=== PATIENT | male | born 1955 | race Caucasian/White ===

== ENCOUNTER 2025-03-23 20:08 | Emergency (ER) | payer MEDICARE, OTHER, SELFPAY ==
--- OUTSIDE RECORDS SUMMARY | 2025-03-23 20:10 | XMS_ITS | Clinical Summary ---
Author Organization [employer] Address [address] 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
--- OUTSIDE RECORDS SUMMARY | 2025-03-23 20:10 | XMS_ITS | Clinical Summary ---
Author Organization [facility] [employer] Address [address] [place] [address] Care Team Providers Care Blueprint Clerk Name Role Phone Unavailable Primary Care Provider Unavailabl e Source Comments [facility] [employer],non-owned Affiliates and Associated Physician Practices is amultiple site organization consisting of ambulatory clinics and hospital sitesin [place], [place], [place] and [place]. This disclosure is being madepursuant to the Care Everywhere program and may not contain all information available regarding this patient. Last updated 18.[facility] [employer] Allergies Active Allergy Reactions Criticality Noted Date Comments Clobetasol Rash Medium 04/01/2010 Contrast-Iodinated Agents For Ct/Other Urticaria Medium 06/24/2019 sneezing Iohexol Anaphylaxis High 11/26/2009 Latex Rash Medium 02/24/2011 Medications * Be aware that medications may not be up to date on this document. Alwaysverify current medications with the patient. 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 30 day supply. 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 30 day supply. 100 g 5 1 Active mupirocin (BACTROBAN) 2 % ointmentIndicati ons:Contact dermatitis due to oil, unspecified contact dermatitis type Apply topically inside nostrils, behind ears, fingernails, armpits, belly button, groin folds, buttock crack and to any open scabbed areas 2x/day x 5 days. Repeat monthly x 3 months. 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 11/16/2015 Mixed hyperlipidemia 10/01/2015 Tobacco abuse 10/01/2015 Blue nevus of skin 08/23/2012 Family History Medical History Relation Name Comments Asthma Neg Hx CVA Neg Hx Cancer - Breast Neg Hx Cancer - Other Neg Hx Cancer - Skin, Melanoma Neg Hx Cancer - Skin, Non Melanoma Neg Hx Eczema Neg Hx Hemophilia Neg Hx Psoriasis Neg Hx Social History Tobacco Use Types Packs/Day Years Used Date Smoking Tobacco: Every Day Smokeless Tobacco: Never Alcohol Use Standard Drinks/Week Comments Yes 0 (1 standard drink = 0.6 oz pur e alcohol) occasionally Sex and Gender Information Value Date Recorded Sex Assigned at Not on file Legal Sex Male 11:04 AM CDT Gender Identity Not on file Sexual Orientation Not on file Last Filed Vital Signs Vital Sign Reading Time Taken Comments Blood Pressure 100/80 10/01/2015 8:50 AM CDT Pulse 61 10/01/2015 8:50 AM CDT Temperature 36.8 C (98.2 F) 10/01/2015 8:50 AM CDT Respiratory Rate - - Oxygen Saturation 97% 10/01/2015 8:50 AM CDT Inhaled Oxygen Concentration - - Weight 96.8 kg (213 lb 6.4 oz) 10/01/2015 8:50 A M CDT Height 190.5 cm (6' 3) 10/01/2015 8:50 AM CDT Body Mass Index 26.67 10/01/2015 8:50 AM CDT Plan of Treatment Health Maintenance Due Date Last Done Comments COLOGUARD (AGES 45-75) - COL ON CA SCREENING 1957 COLON MONITORING 1957 COLONOSCOPY - COLON CA SCREENING 1957 CT COLONOGRAPHY - COLON CA SCREENING 1957 Colorectal Cancer Screening 1957 FIT - COLON CA SCREENING 1957 FLEX SIG - COLON CA SCREENING 1957 MEDICARE AWV 12 MONTHS 1957 HEPATITIS C SCREENING 10/24/1975 DTAP/TDAP/TD VACCINES (1 - Tdap) 1976 PNEUMOCOCCAL VACCINE 50+ (1 of 2 - PCV) 1976 ZOSTER VACCINE (1 of 2) 10/29/2007 LIPID TESTING 09/30/2020 10/01/2015, 10/01/2015 AAA SCREENING 2022 DEPRESSION SCREENING 07/16/2024 COVID-19 VACCINE (1 - 2023-2 5 season) 2025 INFLUENZA VACCINE (#1) 2025 Respiratory Syncytial Virus (RSV) Vaccine Pt: or over 60 yrs (1 - 1-dose 75+ series) 2032 HEPATITIS B VACCINE Aged Out No longe r eligible based on patient's age to complete this topic HIB VACCINE Aged Out No longer eligi ble based on patient's age to complete this topic HPV VACCINE Aged Out No longer eligi ble based on patient's age to complete this topic MENINGOCOCCAL (Group B) VACCINE SHARED DECISION-MAKING Aged Out No longer eligible based on patient's age to complete this topic MENINGOCOCCAL GROUPS A/C/Y/W VACCINE Aged Out No longer eligible b ased on patient's age to complete this topic Procedures Procedure Name Priority Date/Time Associated Diagnosis Comments LIPID PROFILE - POINT OF CARE (AMB) [facility] Routine 10/01/2015 from Last 3 Months or Most Recently Relevant to Health Maintenance Results * LIPID PROFILE - POINT OF CARE (AMB) [facility] (10/01/2015) Cholesterol Total 248 [facility] HDL 30 mg/dL [facility] Triglycerides 103 mg/dL [facility] LDL Calculated [facility] 10/01/2015 us Pancho Saunders MD LAB - POINT OF CARE ORDERABLE S Final Result [facility] [address] [place] [address], [facility] from Last 3 Months or Most Recently Relevant to Health Maintenance Insurance MEDICARE [facility]
--- OUTSIDE RECORDS SUMMARY | 2025-03-23 20:10 | XMS_ITS | Encounter Summary ---
Author Organization [employer] Address [address] [place] [address] Care Team Providers Care Plumbing Warehouse Helper Name Role Phone Unavailable Primary Care Provider Unavailabl e Encounter Details Date Type Department Care Team (Latest Contact Info) Description 11/19/2003 Outpatient Historical HIS CD PARTIAL Ayden Chandra MD [address] [place] [id number] [facility] NEC/NOS-UNSPEC ([facility] (Primary Dx) Social History Tobacco Use Types Packs/Day Years Used Date Smoking Tobacco: Never Assessed Sex and Gender Information Value Date Recorded Sex Assigned at Not on file 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
[2025-03-23 20:15] VITALS: BP 127/72; PULSE 84; RESP 18; TEMP 36.8; O2SAT 100
--- NOTE | 2025-03-23 22:06 | ED_ITS ---
HPI - General Adult General Chief complaint: Unspecified Stated complaint: constipation, rectal pain Time Seen by Provider: 03/23/25 20:40 Source: patient Mode of arrival: ambulatory Limitations: no limitations History of Present Illness HPI narrative: This is a 69 year old male that presents to the ER for constipation. Reports he has been having trouble with constipation over the last couple of days. Reports he had been straining and then noticed and area of swelling by his rectum. Denies abdominal pain, blood in the stool. Related Data Allergies Allergy/AdvReac Type Severity Reaction Status Date / Time Iodinated Contrast Media Allergy Unknown Verified 06/13/19 08:40 iodine Allergy Unknown IVP DYE Verified 06/13/19 08:40 HIVES ioversol Allergy Unknown Verified 06/13/19 08:40 clobetasol Allergy Verified 06/13/19 08:40 latex Allergy Verified 06/13/19 08:40 IVP DYE Allergy Mild Uncoded 06/13/19 08:40 Review of Systems Review of Systems: All systems reviewed & are unremarkable except as noted in HPI and below PMFSH Family History Family History (System 06/13/19 @ 08:40 by Barbie Valdes) Mother Family history of malignant neoplasm Patient's mother is Other Family history of allergic disorder Social History Social History (System 06/13/19 @ 08:40 by Barbie Valdes) Alcohol intake: current Exam Narrative: GENERAL: Well-appearing, well-nourished, and in no acute distress. HEAD: Normocephalic, atraumatic. EYES: EOMI. CHEST: Clear to auscultation. No respiratory distress. No wheezes rales or rhonchi HEART: Regular rate and rhythm. No murmur heard. Normal peripheral pulses. ABDOMEN: Soft, nontender, nondistended, normal active bowel sounds. EXTREMITIES: Normal range of motion. No edema. SKIN: Warm, dry, no rash. NEURO: No focal deficits. Alert and oriented x3. PSYCH: Normal mood and affect RECTAL: External hemorrhoid present, nonthrombosed, no bleeding Course Vital Signs Vital signs: Vital Signs Temperature 98.2 F 03/23/25 20:15 Pulse Rate 84 03/23/25 20:15 Respiratory Rate 18 03/23/25 20:15 Blood Pressure 127/72 03/23/25 20:15 Pulse Oximetry 100 03/23/25 20:15 Oxygen Delivery Room Air 03/23/25 20:15 Temperature 98.2 F 03/23/25 20:15 Pulse Rate 84 03/23/25 20:15 Respiratory Rate 18 03/23/25 20:15 Blood Pressure 127/72 03/23/25 20:15 Pulse Oximetry 100 03/23/25 20:15 Oxygen Delivery Room Air 03/23/25 20:15 Medical Decision Making MDM Narrative Medical decision making narrative: Patient presents to the ER for an external hemorrhoid. Nonthrombosed, no active bleeding. No abdominal pain. Instructed on further care. Will be given follow up with Gastroenterology. He was given warnings to return to the ER Vital Signs Vital Signs: Vital Signs Temperature 98.2 F 03/23/25 20:15 Pulse Rate 84 03/23/25 20:15 Respiratory Rate 18 03/23/25 20:15 Blood Pressure 127/72 03/23/25 20:15 Pulse Oximetry 100 03/23/25 20:15 Oxygen Delivery Room Air 03/23/25 20:15 Temperature 98.2 F 03/23/25 20:15 Pulse Rate 84 03/23/25 20:15 Respiratory Rate 18 03/23/25 20:15 Blood Pressure 127/72 03/23/25 20:15 Pulse Oximetry 100 03/23/25 20:15 Oxygen Delivery Room Air 03/23/25 20:15 Critical Care Time Critical Care Time Critical Care Time: No Discharge Plan Discharge Clinical Impression: Hemorrhoid Qualifiers: Hemorrhoid type: unspecified Qualified Code(s): K64.9 - Unspecified hemorrhoids Patient Disposition: Home Condition: Stable Instructions: Constipation (ED), Hemorrhoids (ED), Sitz Bath (DC) Additional Instructions: Return to the ER if you experience fever, abdominal pain with nausea and vomiting, you are unable to keep down liquids or solids, blood in the stool or any other symptoms that are concerning to you Remain well hydrated. Take Colace daily. Miralax daily. Apply ointment as needed Follow up with gastroenterology Patient Language: Sammarinese Prescriptions: New Preparation H 0.25-14-74.9 % ointment 1 applic RECTAL TID PRN (Reason: rectal discomfort) Qty: 28 0RF Follow-up/Referrals: Prem Moreno MD [Physician, Family Practice] Jamarcus Pollack MD [Physician, Gastroenterology] UNKNOWN,DOCTOR [Primary Care Provider]
== END 2025-03-23 22:35 | disposition home or self-care (01) ==
PROVIDERS: Emergency Provider Physician Assistant
DX: K64.9 Unspecified hemorrhoids (principal)
CPT/HCPCS: 99283

== ENCOUNTER 2025-03-25 12:18 | Emergency (ER) | payer MEDICARE, OTHER, SELFPAY ==
--- NOTE | ~2025-03-25 | CT_ITS ---
EXAMINATION: CT abdomen pelvis wo con DATE: 03/25/2025 13:23 INDICATION: Rectal pain and bleeding TECHNIQUE: Computed tomography (CT) of the abdomen and pelvis was performed without intravenous contrast. Automated exposure control and iterative reconstruction technique were employed. The dose-length product was 669.40 mGy-cm. COMPARISON: CT dated 04/05/2005 FINDINGS: Lung bases are clear. Heart size is normal. No pericardial or pleural effusion. Cholecystectomy clips at gallbladder fossa. Liver, spleen, pancreas, bilateral adrenal glands and kidneys are normal. Mild sigmoid diverticulosis without adjacent from trace stranding to suggest diverticulitis. Status post appendectomy with suture line at the tip of the cecum. No bowel obstruction. Bladder is normal. Prostatomegaly measuring 6.1 x 4.7 cm. No free intraperitoneal gas or fluid. No pathologically enlarged abdominal or pelvic lymphadenopathy. Small fat-containing left inguinal hernia. Mild thoracic and lumbar spondylosis. IMPRESSION: 1. Mild sigmoid diverticulosis without diverticulitis. No acute intra- abdominal/pelvic process. 2. Prostatomegaly. 3. Small fat-containing left inguinal hernia. Reviewed, dictated and finalized at location A. IMPRESSION: 1. Mild sigmoid diverticulosis without diverticulitis. No acute intra-abdominal /pelvic process. 2. Prostatomegaly. 3. Small fat-containing left inguinal hernia.
[2025-03-25 12:53] VITALS: BP 155/88; PULSE 90; RESP 18; TEMP 36.4; O2SAT 98
--- OUTSIDE RECORDS SUMMARY | 2025-03-25 13:04 | XMS_ITS | Clinical Summary ---
Author Organization [facility] [employer] Address [address] [place] [address] Care Team Providers Care Certified Credit Counselor Name Role Phone Unavailable Primary Care Provider Unavailabl e Source Comments [facility] [employer],non-owned Affiliates and Associated Physician Practices is amultiple site organization consisting of ambulatory clinics and hospital sitesin [place], [place], [place] and [place]. This disclosure is being madepursuant to the Care Everywhere program and may not contain all information available regarding this patient. Last updated 18.[facility] [employer] Allergies Active Allergy Reactions Criticality Noted Date [...] CARE (AMB) [facility] (10/01/2015) Cholesterol Total 248 [facility] HDL 30 mg/dL [facility] Triglycerides 103 mg/dL [facility] LDL Calculated 197 [facility] 10/01/2015 us Pancho Saunders MD LAB - POINT OF CARE ORDERABLE S Final Result [facility] [address] [place] [address], [facility] [place] from Last 3 Months or Most Recently Relevant to Health Maintenance Insurance MEDICARE [facility]
--- OUTSIDE RECORDS SUMMARY | 2025-03-25 13:04 | XMS_ITS | Clinical Summary ---
Author Organization [employer] [facility] Address [address] 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
--- OUTSIDE RECORDS SUMMARY | 2025-03-25 13:04 | XMS_ITS | Encounter Summary ---
Author Organization [employer] Address 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
--- NOTE | 2025-03-25 13:15 | ED.GIBLEED ---
HPI - GI Bleed General Chief complaint: Skin/Abscess/Foreign Body <Juan Luis Lyle APRN - Last Filed: 03/25/25 13:16> Stated complaint: BLEEDING HEMORRHOID <Juan Luis Lyle APRN - Last Filed: 03/25/25 13:16> Time Seen by Provider: 03/25/25 15:44 <Juan Luis Lyle APRN - Last Filed: 03/25/25 13:16> Focused HPI: 69-year-old male presents to the ER complaining of rectal pain and bleeding for last 3 days. Patient was seen here 3 days ago was told he has a hemorrhoid. Patient was prescribed Preparation-H. Patient reports since then the pain, swelling, bleeding is gotten worse. Patient denies any abdominal pain, nausea, vomiting, diarrhea, fevers, chest pain, shortness of breath, or other symptoms. Patient getting lab work imaging done last visit. GENERAL: Well-appearing, well-nourished, and in no acute distress. HEAD: Normocephalic, atraumatic. CHEST: Clear to auscultation. ?No respiratory distress. GI: Round, distended, and soft, nontender. Bowel sounds active. No guarding or rigidity. No rebound tenderness. HEART: Regular rate and rhythm.? NEURO: ?Alert and oriented x3. Patient screened in triage and initial orders placed.? ?Additional care and disposition to be based upon?diagnostic testing and treatment. <Juan Luis Lyle APRN - Last Filed: 03/25/25 13:16> History of Present Illness HPI Narrative: agree with HPI <Ricki Hoyt MD - Last Filed: 03/25/25 21:42> Related Data Allergies/Adverse reactions: Allergies Allergy/AdvReac Type Severity Reaction Status Date / Time Iodinated Contrast Media Allergy Unknown Unknown Verified 03/25/25 12:20 iodine Allergy Unknown IVP DYE Verified 03/25/25 12:20 HIVES ioversol Allergy Unknown Unknown Verified 03/25/25 12:20 clobetasol Allergy Unknown Verified 03/25/25 12:20 latex Allergy Unknown Verified 03/25/25 12:20 IVP DYE Allergy Mild Unknown Uncoded 03/25/25 12:20 <Juan Luis Lyle APRN - Last Filed: 03/25/25 13:16> Review of Systems Review of Systems: Gen.: Denies fevers or chills Eyes: Denies eye pain or visual change ENT: Denies congestion Respiratory: Denies shortness of breath or cough CV: Denies chest pain or palpitations GI: Denies abdominal pain nausea, emesis or diarrhea denies burning, urgency, frequency or hematuria Musculoskeletal: Denies back pain or muscle pain Neuro: Denies numbness, tingling, weakness or focal weakness Skin: Denies rash Except as documented, all other systems reviewed and negative <Ricki Hoyt MD - Last Filed: 03/25/25 21:42> [facility] Family History Family History: Family History Mother Family history of malignant neoplasm Patient's mother is Other Family history of allergic disorder <Juan Luis Lyle APRN - Last Filed: 03/25/25 13:16> Social History Social History: Social History Alcohol intake: current <Juan Luis Lyle APRN - Last Filed: 03/25/25 13:16> Exam Narrative: APPEARANCE: No acute distress, nontoxic, resting in bed EYES: EOMI HEENT: Normocephalic, atraumatic, OMM RESPIRATORY: No respiratory distress Clear to auscultation bilaterally with no rhonchi wheezing or rales. CARDIOVASCULAR: Regular rate and rhythm without murmurs rubs or gallops. ABDOMINAL: Soft, nontender, nondistended, no rebound or guarding GEN: There is an opening hemorrhoid to 4 o clock, no active bleeding. MUSCULOSKELETAl: Moves all extremities. No clubbing, cyanosis or edema. NEURO: Awake and alert. Following commands, speech normal, no focal deficits SKIN:: Warm, dry. No rashes lesions or abrasions PSYCHIATRIC: Normal affect/mood, <Ricki Hoyt MD - Last Filed: 03/25/25 21:42> Course Vital Signs Vital signs: Vital Signs Temperature 97.6 F 03/25/25 12:53 Pulse Rate 90 03/25/25 12:53 Respiratory Rate 18 03/25/25 12:53 Blood Pressure 155/88 H 03/25/25 12:53 Pulse Oximetry 98 03/25/25 12:53 Oxygen Delivery Room Air 03/25/25 12:53 Temperature 97.6 F 03/25/25 12:53 Pulse Rate 90 03/25/25 12:53 Respiratory Rate 18 03/25/25 12:53 Blood Pressure 155/88 H 03/25/25 12:53 Pulse Oximetry 98 03/25/25 12:53 Oxygen Delivery Room Air 03/25/25 12:53 <Juan Luis Lyle APRN - Last Filed: 03/25/25 13:16> Vital Signs Temperature 97.6 F 03/25/25 12:53 Pulse Rate 90 03/25/25 12:53 Respiratory Rate 18 03/25/25 12:53 Blood Pressure 155/88 H 03/25/25 12:53 Pulse Oximetry 98 03/25/25 12:53 Oxygen Delivery Room Air 03/25/25 12:53 Temperature 97.6 F 03/25/25 12:53 Pulse Rate 90 03/25/25 12:53 Respiratory Rate 18 03/25/25 12:53 Blood Pressure 155/88 H 03/25/25 12:53 Pulse Oximetry 98 03/25/25 12:53 Oxygen Delivery Room Air 03/25/25 12:53 <Ricki Hoyt MD - Last Filed: 03/25/25 21:42> MDM - GI Bleed MDM Narrative Medical decision making narrative: A 69-year-old male who presents to the ED for concerns for rectal bleeding due to hemorrhoids. On initial evaluation, patient was in no acute distress, afebrile and hemodynamically stable. He did have a non thrombosed hemorrhoid with a small amount of drainage but no active bleeding at this time it was minimally tender to palpation. CT abdomen/pelvis revealed diverticulosis without diverticulitis. Had a leukocytosis of 15.6 the remaining labs without significant abnormalities. No suspicion for infection at this time. Patient will be given referral to surgery for further evaluation treatment of his hemorrhoids. He ordered has a raised to home. He was advised to continue to monitor the symptoms. Patient was agreeable to this plan. Given strict return precautions. <Ricki Hoyt MD - Last Filed: 03/25/25 21:42> Differential Diagnosis Differential diagnosis: Likely hemorrhoids, infectious diarrhea, Lower gastrointestinal hemorrhage, hematochezia and anal fissure <Ricki Hoyt MD - Last Filed: 03/25/25 21:42> Medical Records Attestation: I reviewed the patient's medical records. <Ricki Hoyt MD - Last Filed: 03/25/25 21:42> Lab Data Attestation: I reviewed the patient's lab results. <Ricki Hoyt MD - Last Filed: 03/25/25 21:42> Result diagrams: 03/25/25 13:31 03/25/25 13:31 <Juan Luis Lyle APRN - Last Filed: 03/25/25 13:16> Labs: Lab Results 03/25/25 Range/Units 13:31 WBC 15.6 H (4.5-10.0) K/mm3 RBC 5.17 (4.6-6.20) M/mm3 Hgb 15.1 (14.0-18.0) g/dL Hct 45.6 (42.0-52.0) % MCV 88.2 (80-100) fl MCH 29.2 (26-34) pg MCHC 33.1 (32-36) g/dl RDW 14.2 (11.5-14.5) % Plt Count 253 (150-375) k/mm3 MPV 9.9 (7.4-10.4) fl Immature Gran % (Auto) 1.0 H (0-0.5) % Neut % (Auto) 77.0 H (45.5-73.1) % Lymph % (Auto) 13.4 L (18.3-44.2) % [place] % (Auto) 7.4 (2.6-8.5) % Eos % (Auto) 0.5 (0-4.4) % Baso % (Auto) 0.7 (0.2-1.2) % Lymph # (Auto) 2.09 (0.9-3.2) K/mm3 [place] # (Auto) 1.2 H (0.1-0.6) K/mm3 Eos # (Auto) 0.1 (0-0.3) K/mm3 Baso # (Auto) 0.1 (0.0-0.1) K/mm3 Abs Immat Gran (auto) 0.15 H (0.00-0.031) K/mm3 Absolute Neuts (auto) 12.0 H (1.3-6.7) K/mm3 Absolute Nucleated RBC 0.000 (0.0-0.012) K/mm3 Nucleated RBC % 0.0 (0.0-0.2) % PT 13.4 (11.1-14.7) Seconds INR 1.0 APTT 34.4 (22.3-36.8) Seconds Sodium 137 (137-145) mmol/L Potassium 3.8 (3.4-5.0) mmol/L Chloride 102 (98-107) mmol/L Carbon Dioxide 27 (22-30) mmol/L Anion Gap 8 (4-12) mmol/L BUN 6 L (9-20) mg/dL Creatinine 0.96 (0.7-1.3) mg/dL Estim Creat Clear Calc 74 ml/min Estimated GFR > 60 (59 - ) Glucose 102 (65-110) mg/dL Calcium 9.0 (8.4-10.2) mg/dL Total Bilirubin 0.8 (0.2-1.3) mg/dL AST 22 (17-59) U/L ALT 16 (6-50) U/L Alkaline Phosphatase 110 (38-126) U/L Total Protein 7.8 (6.3-8.2) g/dL Albumin 4.1 (3.5-5.1) g/dL Lipase 27 (23-300) U/L Blood Type A Positive Antibody Screen Negative <Juan Luis Lyle, HADOOP CONSULTANT - Last Filed: 03/25/25 13:16> Lab Results 03/25/25 Range/Units 13:31 WBC 15.6 H (4.5-10.0) K/mm3 RBC 5.17 (4.6-6.20) M/mm3 Hgb 15.1 (14.0-18.0) g/dL Hct 45.6 (42.0-52.0) % MCV 88.2 (80-100) fl MCH 29.2 (26-34) pg MCHC 33.1 (32-36) g/dl RDW 14.2 (11.5-14.5) % Plt Count 253 (150-375) k/mm3 MPV 9.9 (7.4-10.4) fl Immature Gran % (Auto) 1.0 H (0-0.5) % Neut % (Auto) 77.0 H (45.5-73.1) % Lymph % (Auto) 13.4 L (18.3-44.2) % [place] % (Auto) 7.4 (2.6-8.5) % Eos % (Auto) 0.5 (0-4.4) % Baso % (Auto) 0.7 (0.2-1.2) % Lymph # (Auto) 2.09 (0.9-3.2) K/mm3 [place] # (Auto) 1.2 H (0.1-0.6) K/mm3 Eos # (Auto) 0.1 (0-0.3) K/mm3 Baso # (Auto) 0.1 (0.0-0.1) K/mm3 Abs Immat Gran (auto) 0.15 H (0.00-0.031) K/mm3 Absolute Neuts (auto) 12.0 H (1.3-6.7) K/mm3 Absolute Nucleated RBC 0.000 (0.0-0.012) K/mm3 Nucleated RBC % 0.0 (0.0-0.2) % PT 13.4 (11.1-14.7) Seconds INR 1.0 APTT 34.4 (22.3-36.8) Seconds Sodium 137 (137-145) mmol/L Potassium 3.8 (3.4-5.0) mmol/L Chloride 102 (98-107) mmol/L Carbon Dioxide 27 (22-30) mmol/L Anion Gap 8 (4-12) mmol/L BUN 6 L (9-20) mg/dL Creatinine 0.96 (0.7-1.3) mg/dL Estim Creat Clear Calc 74 ml/min Estimated GFR > 60 (59 - ) Glucose 102 (65-110) mg/dL Calcium 9.0 (8.4-10.2) mg/dL Total Bilirubin 0.8 (0.2-1.3) mg/dL AST 22 (17-59) U/L ALT 16 (6-50) U/L Alkaline Phosphatase 110 (38-126) U/L Total Protein 7.8 (6.3-8.2) g/dL Albumin 4.1 (3.5-5.1) g/dL Lipase 27 (23-300) U/L Blood Type A Positive Antibody Screen Negative <Ricki Hoyt MD - Last Filed: 03/25/25 21:42> Imaging Data Radiologist's impression: Impressions Abdomen/Pelvis CT 03/25/25 13:28 IMPRESSION: 1. Mild sigmoid diverticulosis without diverticulitis. No acute intra-abdominal/pelvic process. 2. Prostatomegaly. 3. Small fat-containing left inguinal hernia. <Ricki Hoyt MD - Last Filed: 03/25/25 21:42> Discharge Plan Discharge Clinical Impression: Hemorrhoid Qualifiers: Hemorrhoid type: unspecified Qualified Code(s): K64.9 - Unspecified hemorrhoids <Juan Luis Lyle APRN - Last Filed: 03/25/25 13:16> Patient Disposition: Home <Juan Luis Lyle APRN - Last Filed: 03/25/25 13:16> Condition: Stable <Juan Luis Lyle APRN - Last Filed: 03/25/25 13:16> Instructions: Antibiotic Form, Hemorrhoids (ED) <Juan Luis Lyle APRN - Last Filed: 03/25/25 13:16> Additional Instructions: Follow-up with general surgery regarding your hemorrhoid. Return the ED for any new or worsening symptoms. <Juan Luis Lyle APRN - Last Filed: 03/25/25 13:16> Patient Language: Faroese <Juan Luis Lyle APRN - Last Filed: 03/25/25 13:16> Prescriptions: No Action Preparation H 0.25-14-74.9 % ointment 1 applic RECTAL TID PRN (Reason: rectal discomfort) Qty: 28 0RF <Juan Luis Lyle APRN - Last Filed: 03/25/25 13:16> Follow-up/Referrals: PHYSICIAN,ASIAN STUDIES PROFESSOR [Non-Staff, Internal Medicine] Frank Parham MD [Physician, General Surgery] <Juan Luis Lyle APRN - Last Filed: 03/25/25 13:16>
[2025-03-25 13:38] LABS: Hematocrit 45.6 % (42.0-52.0); Hemoglobin 15.1 g/dL (14.0-18.0); Immature Granulocyte Percent A 1.0 % (0-0.5); Lymphocytes Absolute Auto 2.09 K/mm3 (0.9-3.2); Mean Corpuscular HGB Conc 33.1 g/dl (32-36); Mean Corpuscular Hemoglobin 29.2 pg (26-34); Mean Corpuscular Volume 88.2 fl (80-100); Nucleated Red Blood Cells Absolute Auto 0.000 K/mm3 (0.0-0.012); Nucleated Red Blood Cells Perc 0.0 % (0.0-0.2); Platelet Count Result 253 k/mm3 (150-375); Red Blood Count 5.17 M/mm3 (4.6-6.20); White Blood Count 15.6 K/mm3 (4.5-10.0)
[2025-03-25 13:56] LABS: Alanine Aminotransferase 16 U/L (6-50); Albumin Level 4.1 g/dL (3.5-5.1); Alkaline Phosphatase 110 U/L (38-126); Anion Gap 8 mmol/L (4-12); Aspartate Amino Transferase 22 U/L (17-59); Bilirubin,Total 0.8 mg/dL (0.2-1.3); Blood Urea Nitrogen 6 mg/dL (9-20); Calcium 9.0 mg/dL (8.4-10.2); Carbon Dioxide 27 mmol/L (22-30); Chloride 102 mmol/L (98-107); Estimated CRCL calculation 74 ml/min; Estimated Glomerular Filt Rate > 60; Glucose 102 mg/dL (65-110); Lipase 27 U/L (23-300); Potassium 3.8 mmol/L (3.4-5.0); Sodium 137 mmol/L (137-145); Total Protein 7.8 g/dL (6.3-8.2)
[2025-03-25 14:01] LABS: INR 1.0; Prothrombin Time 13.4 Seconds (11.1-14.7)
[2025-03-25 14:02] LABS: Partial Thromboplastin Time 34.4 Seconds (22.3-36.8)
--- OUTSIDE RECORDS SUMMARY | 2025-03-25 14:15 | XMS_ITS | Encounter Summary ---
Author Organization [employer] Address [address] [place] [address] Care Team Providers Care Manager Immunology Name Role Phone Unavailable Primary Care Provider Unavailabl e Encounter Details Date Type Department Care Team (Latest Contact Info) Description 11/19/2003 Outpatient Historical HIS CD PARTIAL Ayden Chandra MD [address] [place] [id number] [facility] NEC/NOS-UNSPEC ([facility] (Primary Dx) Social History Tobacco Use Types Packs/Day Years Used Date Smoking Tobacco: Never Assessed Sex and Gender Information Value Date Recorded Sex Assigned at Not on file 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
--- OUTSIDE RECORDS SUMMARY | 2025-03-25 14:15 | XMS_ITS | Clinical Summary ---
Author Organization [employer] [facility] Address [address] 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
--- OUTSIDE RECORDS SUMMARY | 2025-03-25 14:15 | XMS_ITS | Clinical Summary ---
Author Organization [facility] [employer] Address [address] [place] [address] Care Team Providers Care Night Filler Name Role Phone Unavailable Primary Care Provider Unavailabl e Source Comments [facility] [employer],non-owned Affiliates and Associated Physician Practices is amultiple site organization consisting of ambulatory clinics and hospital sitesin [place], [place], [place] and [place]. This disclosure is being madepursuant to the Care Everywhere program and may not contain all information available regarding this patient. Last updated 18.[facility] [employer] Allergies Active Allergy Reactions Criticality Noted Date [...] CARE (AMB) [facility] (10/01/2015) Cholesterol Total 248 [facility] HDL 30 mg/dL [facility] Triglycerides 103 mg/dL [facility] LDL Calculated 197 [facility]2015 us Pancho Saunders MD LAB - POINT OF CARE ORDERABLE S Final Result [facility] [address] [place] [address], [facility] from Last 3 Months or Most Recently Relevant to Health Maintenance Insurance MEDICARE [facility]
== END 2025-03-25 16:36 | disposition home or self-care (01) ==
PROVIDERS: Emergency Provider Student in an Organized Health Care Education/Training Program
DX: K64.9 Unspecified hemorrhoids (principal); K57.30 Diverticulosis of large intestine without perforation or abscess without bleeding; K40.90 Unilateral inguinal hernia, without obstruction or gangrene, not specified as recurrent; N40.0 Benign prostatic hyperplasia without lower urinary tract symptoms
CPT/HCPCS: 36415; 74176; 80053; 83690; 85025; 85610; 85730; 86850; 86900; 86901; 99284